=== PATIENT | female | born 1990 | race Caucasian/White ===

== ENCOUNTER 2016-12-10 13:20 | Emergency (ER) | payer OTHER ==
[~2016-12-10] VITALS: Wt 53.2 kg
[~2016-12-10 13:20] MED LIST: NAPR-260 PO
[2016-12-10] MEDS ORDERED: CYCL5TAB PO (14:03)
[2016-12-10] MEDS ORDERED: IBUP-1542 PO (14:03)
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
== END 2016-12-10 14:10 | disposition home or self-care (01) ==
LOC: FTE 13:20
DX: S09.90XA Unspecified injury of head, initial encounter (principal); S16.1XXA Strain of muscle, fascia and tendon at neck level, initial encounter; V49.40XA Driver injured in collision with unspecified motor vehicles in traffic accident, initial encounter
CPT/HCPCS: 99283